=== PATIENT | female | born 1955 | race Caucasian/White ===

== ENCOUNTER 2016-10-18 09:24 | Inpatient (IN) | payer BC ==
[2016-10-18] MEDS ORDERED: HYDROmorphone 0.5 MG/0.5 ML Syringe IVPUSH ONE ×2 (09:42→10:46)
[2016-10-18] MEDS ORDERED: Ondansetron 4 MG/2 ML SDV IVPUSH ONE (09:42)
[2016-10-18] MEDS ORDERED: Sodium Chloride 0.9% 1,000 ML IV SCH ×2 (09:45→11:15)
--- NOTE | 2016-10-18 10:14 | EDM.PDOC ---
ED HPI GI/ABDOMINAL - General Chief Complaint: Abdominal Pain Stated Complaint: STOMACH PAIN Time Seen by Provider: 10/18/16 10:11 Source: Reports: Patient, Family History Limitations: Reports: No limitations - History of Present Illness INITIAL COMMENTS - FREE TEXT/NARRATIVE: pt had severe pain in the rt lower abdoman. which started last nite and has gotten much worse. Timing/Duration: Reports: Hour(s):, Getting worse Location: RLQ Quality: Reports: fullness, stabbing, throbbing Associated Symptoms (-Female): Reports: diarrhea, other ( when the pain started she also had diahrea. ) - Related Data Allergies/ADRs: Allergies Allergy/AdvReac Type Severity Reaction Status Date / Time No Known Allergies Allergy Verified 10/18/16 09:35 Home Meds: Home Meds NK [No Known Home Meds] 10/19/13 [History] ED ROS GENERAL - Review of Systems Review Of Systems: See Below HEENT: Reports: No symptoms Respiratory: Reports: No Symptoms Cardiovascular: Reports: No symptoms Endocrine: Reports: no symptoms GI/Abdominal: Reports: Abdominal pain, Diarrhea, Other ( severe rt sided abdomanal pain) : Reports: no symptoms Musculoskeletal: Reports: no symptoms Skin: Reports: no symptoms ED EXAM, GI/ABD - Physical Exam Exam: See Below Text/Narrative:: pt arrived very uncomfortable in the rt lower abdoman. She states her pain started last nite and has gotten progressively worse. She has been nauseated. No urin symptoms. Exam Limited By: No limitations General Appearance: alert, anxious, mild distress Ears: normal TMs Nose: normal inspection Throat/Mouth: Normal inspection, Other ( mouth is dry. ) Head: atraumatic Neck: normal inspection Respiratory/Chest: no respiratory distress Cardiovascular: regular rate, rhythm GI/Abdominal: tenderness, guarding, other (Pt is very uncomfortable in the rt lower abdoman. ) (Female) Exam: Deferred Rectal (Female) Exam: Deferred Extremities: normal inspection Neurological: alert, oriented, normal cognition Psychiatric: normal affect Course - Vital Signs Last Recorded V/S: Last Vital Signs Temp 38.1 C 10/18/16 09:40 Pulse 100 10/18/16 09:40 Resp 20 10/18/16 09:40 BP 182/102 H 10/18/16 09:40 Pulse Ox 94 L 10/18/16 09:40 - Orders/Labs/Meds Orders: Active Orders 24 hr Category Date Time Status UA W/MICROSCOPIC [URIN] Urgent Lab 10/18/16 09:40 Uncollected Iopamidol [Isovue-300 (61%)] Med 10/18/16 10:22 Active 100 ml IV . DIRECTED PRN Sodium Chloride 0.9% [Normal Saline] 1,000 ml Med 10/18/16 09:45 Active IV ASDIRECTED Sodium Chloride 0.9% [Normal Saline] 75 ml Med 10/18/16 10:30 Active IV ASDIRECTED Medication Orders Sodium Chloride (Normal Saline) 1,000 mls @ 999 mls/hr IV ASDIRECTED LISA Stop: 10/18/16 23:00 Last Admin: 10/18/16 10:11 Dose: 999 mls/hr Sodium Chloride (Normal Saline) 75 mls @ 3 mls/sec IV ASDIRECTED LISA Stop: 10/18/16 23:00 Last Admin: 10/18/16 10:39 Dose: 3 mls/sec Iopamidol (Isovue-300 (61%)) 100 ml IV . DIRECTED PRN PRN Reason: RADIOLOGY EXAM Stop: 10/19/16 10:23 Last Admin: 10/18/16 10:39 Dose: 100 ml Labs: Laboratory Tests 10/18/16 10/18/16 10/18/16 Range/Units 09:49 09:49 09:49 WBC 18.6 H (4.5-11.0) K/uL RBC 4.62 (3.30-5.50) M/uL Hgb 13.6 (12.0-15.0) g/dL Hct 40.7 (36.0-48.0) % MCV 88 (80-98) fL MCH 29 (27-31) pg MCHC 33 (32-36) % Plt Count 400 (150-400) K/uL Neut % (Auto) 89 H (36-66) % Lymph % (Auto) 7 L (24-44) % [place] % (Auto) 4 (2-6) % Eos % (Auto) 0 L (2-4) % Baso % (Auto) 0 (0-1) % Sodium 134 L (140-148) mmol/L Potassium 3.8 (3.6-5.2) mmol/L Chloride 99 L (100-108) mmol/L Carbon Dioxide 22 (21-32) mmol/L Anion Gap 16.8 H (5.0-14.0) mmol/L BUN 12 (7-18) mg/dL Creatinine 1.0 (0.6-1.0) mg/dL Est Cr Clr Drug Dosing TNP Estimated GFR (MDRD) 57 L (>60) Glucose 152 H (74-106) mg/dL Calcium 8.7 (8.5-10.1) mg/dL Total Bilirubin 0.9 (0.2-1.0) mg/dL AST 29 (15-37) U/L ALT 38 (12-78) U/L Alkaline Phosphatase 145 H (46-116) U/L C-Reactive Protein 5.67 H (0.0-0.3) mg/dL Total Protein 8.2 (6.4-8.2) g/dL Albumin 4.1 (3.4-5.0) g/dL Globulin 4.1 H (2.3-3.5) g/dL Albumin/Globulin Ratio 1.0 L (1.2-2.2) Meds: Medications Generic Name Dose Route Start Last Admin Trade Name Freq PRN Reason Stop Dose Admin Sodium Chloride 1,000 mls @ 999 mls/hr 10/18/16 09:45 10/18/16 10:11 Normal Saline IV 10/18/16 23:00 999 mls/hr ASDIRECTED LISA Administration Sodium Chloride 75 mls @ 3 mls/sec 10/18/16 10:30 10/18/16 10:39 Normal Saline IV 10/18/16 23:00 3 mls/sec ASDIRECTED LISA Administration Iopamidol 100 ml 10/18/16 10:22 10/18/16 10:39 Isovue-300 (61%) IV 10/19/16 10:23 100 ml . DIRECTED PRN Administration RADIOLOGY EXAM Discontinued Medications Generic Name Dose Route Start Last Admin Trade Name Freq PRN Reason Stop Dose Admin Hydromorphone HCl 0.5 mg 10/18/16 09:42 10/18/16 09:52 Dilaudid IVPUSH 10/18/16 09:43 0.5 mg ONETIME ONE Administration Hydromorphone HCl 0.5 mg 10/18/16 10:46 10/18/16 10:51 Dilaudid IVPUSH 10/18/16 10:47 0.5 mg ONETIME ONE Administration Ondansetron HCl 4 mg 10/18/16 09:42 10/18/16 09:55 Zofran IVPUSH 10/18/16 09:43 4 mg ONETIME ONE Administration - Re-Assessments/Exams Free Text/Narrative Re-Assessment/Exam: 10/18/16 10:31 Pt arrived with pain in the rt lower abdoman. Her wbc is 18,600. Her crp is elevated. Her flat plate of the abdoman does not show evidebnce of a bowel obstructon 10/18/16 11:07 Pt had a cat scan of the abdoman which showed a perforated appendix. No abcess formation Departure - Departure Time of Disposition: 11:08 Disposition: Admitted As Inpatient 67 Condition: fair Clinical Impression: Perforated appendix Forms: ED Department Discharge Care Plan Goals: admit to Dr Escobar - My Orders Last 24 Hours: My Active Orders 10/18/16 09:40 UA W/MICROSCOPIC [URIN] Urgent 10/18/16 09:45 Sodium Chloride 0.9% [Normal Saline] 1,000 ml IV ASDIRECTED 10/18/16 10:22 Iopamidol [Isovue-300 (61%)] 100 ml IV . DIRECTED PRN 10/18/16 10:30 Sodium Chloride 0.9% [Normal Saline] 75 ml IV ASDIRECTED - Assessment/Plan Last 24 Hours: My Active Orders 10/18/16 09:40 UA W/MICROSCOPIC [URIN] Urgent 10/18/16 09:45 Sodium Chloride 0.9% [Normal Saline] 1,000 ml IV ASDIRECTED 10/18/16 10:22 Iopamidol [Isovue-300 (61%)] 100 ml IV . DIRECTED PRN 10/18/16 10:30 Sodium Chloride 0.9% [Normal Saline] 75 ml IV ASDIRECTED
[2016-10-18] MEDS ORDERED: Iopamidol 612 MG/ML 100 ML Bottle IV PRN (10:22)
[2016-10-18] MEDS ORDERED: Sodium Chloride 0.9% 75 ML IV SCH (10:30)
--- NOTE | 2016-10-18 10:38 | CR ---
Abdomen Series w Chest 1V HISTORY: Pain. COMPARISON: None FINDINGS: Cardiac size and pulmonary vessels normal. Lungs are clear. Abdominal films demonstrate no obstruction no free air no suspicious calcifications. Impression: Negative abdomen and chest.
--- NOTE | 2016-10-18 11:00 | CT ---
Abdomen Pelvis w Cont HISTORY: Abdominal pain. Dose: Total DLP 604. COMPARISON: Earlier plain films. FINDINGS: The appendix is dilated with extensive inflammation around the appendix. Appendix measures up to 14 mm with appendicoliths present. There is free air just outside the margin of the appendix image 99 as well as some tiny bubbles of free air anterior to the liver measuring less than 1 cm. No abscess is seen. The liver, spleen, pancreas, adrenal glands and abdominal aorta appear normal. Kidneys unremarkable. No bowel obstruction. The pelvis appears unremarkable. Impression: 1. Appendicitis with perforation. No abscess seen. These findings were called to the emergency room physician at 10:50 AM hours
[2016-10-18] MEDS ORDERED: Bupivacaine 0.5%/EPINEPHrine 1:200,000 50 ML MDV ONE (11:41)
[2016-10-18] MEDS ORDERED: Piperacillin/Tazobactam/Dext 4.5 GM in Premix Bag 1 BAG IV ONE (11:45)
[2016-10-18] MEDS ORDERED: Ondansetron 4 MG/2 ML SDV IVPUSH PRN (11:58)
[2016-10-18] MEDS ORDERED: Promethazine 25 MG/ML SDV IM PRN (11:59)
[2016-10-18] MEDS ORDERED: diphenhydrAMINE 50 MG/ML SDV IV PRN (11:59)
[2016-10-18] MEDS ORDERED: diphenhydrAMINE 25 MG Cap PO PRN (12:00)
[2016-10-18] MEDS ORDERED: Morphine 4 MG/ML Syringe IVPUSH PRN (12:00)
[2016-10-18] MEDS ORDERED: Scopolamine 1.5 MG Transdermal Patch TOP SCH (12:00)
[2016-10-18] MEDS ORDERED: Succinylcholine/Normal Saline 200 MG/10 ML Syringe ONE (12:01)
[2016-10-18] MEDS ORDERED: fentaNYL 100 MCG/2 ML SDV IVPUSH PRN (12:01)
[2016-10-18] MEDS ORDERED: Neostigmine Methylsulfate 1 MG/ML 5 ML Syringe ONE (12:01)
[2016-10-18] MEDS ORDERED: Propofol 200 MG/20 ML SDV ONE (12:01)
[2016-10-18] MEDS ORDERED: Rocuronium 50 MG/5 ML Vial ONE (12:01)
[2016-10-18] MEDS ORDERED: fentaNYL 250 MCG/5 ML SDV ONE ×2 (12:01→12:33)
[2016-10-18] MEDS ORDERED: Ondansetron 4 MG/2 ML SDV ONE (12:01)
[2016-10-18] MEDS ORDERED: Dexamethasone 4 MG/ML SDV ONE (12:01)
[2016-10-18] MEDS ORDERED: Scopolamine 1.5 MG Transdermal Patch TOP PRN (12:02)
[2016-10-18] MEDS ORDERED: Nicotine 14 MG/24 Hr Patch TRDERM PRN (12:03)
[2016-10-18] MEDS ORDERED: Lactated Ringers 1,000 ML ONE (12:50)
[2016-10-18] MEDS ORDERED: HYDROmorphone 1 MG/ML Syringe IVPUSH ONE (13:45)
[2016-10-18] MEDS ORDERED: Zolpidem 5 MG Tab PO PRN (14:52)
[2016-10-18] MEDS ORDERED: Docusate Sodium 100 MG Cap PO PRN (14:52)
[2016-10-18] MEDS ORDERED: Benzocaine/Cetylpyridinium/Menthol Lozenge MUCMEM PRN (14:52)
[2016-10-18] MEDS ORDERED: Bisacodyl 5 MG Tab PO PRN (14:52)
[2016-10-18] MEDS: VERIFY SCOP PATCH TOP SCH (17:03)
[2016-10-18] MEDS: Acetaminophen 325 MG Tab PO PRN (17:26)
[2016-10-18] MEDS: Sodium Chloride 0.9% 1,000 ML IV SCH (17:28)
[2016-10-18] MEDS: Piperacillin/Tazobactam/Dext 4.5 GM in Premix Bag 1 BAG IV SCH (19:09)
[2016-10-18] MEDS: Acetaminophen/oxyCODONE 325-10 MG Tab PO PRN (22:11)
--- NOTE | 2016-10-18 23:40 | CONS ---
DATE OF SERVICE: 10/18/2016 REFERRING PHYSICIAN: CONSULTING PHYSICIAN: Ramírez Escobar MD REASON FOR CONSULTATION: Evaluation of abdominal pain. HISTORY OF PRESENT ILLNESS: This is a pleasant 61-year-old female with right lower quadrant abdominal pain. This has been present for approximately 24 hours. There is no nausea or vomiting associated with this. PAST MEDICAL HISTORY: None. PAST SURGICAL HISTORY: No previous abdominal surgery. FAMILY HISTORY: Noncontributory. REVIEW OF SYSTEMS: GENERAL: Please see above. HEENT: No symptoms. RESPIRATORY: No shortness of breath. CARDIOVASCULAR: No chest pain. ENDOCRINE: No heat or cold intolerance. GASTROINTESTINAL: As above. GENITOURINARY: No dysuria. MUSCULOSKELETAL: No symptoms. SKIN: No symptoms. Remainder review of systems is reviewed and is negative. PHYSICAL EXAMINATION: VITAL SIGNS: Temperature 100.7, blood pressure 130/73, pulse 105, respirations 18, 91% on room air. GENERAL: The patient is appropriate for her condition. HEENT: Pupils are equal. NECK: Supple. LUNGS: Clear. CARDIOVASCULAR: Regular rhythm and rate. ABDOMEN: Pain with palpation right lower quadrant. Minimal guarding, no rebound. EXTREMITIES: Full range of motion. NEUROLOGICAL: Alert and oriented x3. PSYCH: No gross depression. LABORATORY RESULTS: Show white blood cell count of 18.6. Creatinine 1.0. IMAGING: I did review the CT scan which shows appendicitis. ASSESSMENT: Appendicitis. PLAN: The patient will be taken to the operating room for laparoscopic appendectomy. We discussed risks, benefits, alternatives, and limitations, including, but not limited to infection, bleeding, and perforation along with injury to abdominal structures such as bowel, bladder, abscess formation, ileus formation, and other risks not listed here. The patient understands these risks and wished to proceed. Ramírez Escobar MD /[id number]
[2016-10-19] MEDS: Piperacillin/Tazobactam/Dext 4.5 GM in Premix Bag 1 BAG IV SCH ×3 (04:44→19:57)
[2016-10-19] MEDS: Acetaminophen 325 MG Tab PO PRN ×3 (04:47→14:17)
--- NOTE | 2016-10-19 07:55 | OR ---
DATE OF PROCEDURE: 10/18/2016 PROCEDURE: Laparoscopic appendectomy. FINDINGS: 1. Ruptured appendicitis with piecemeal appendix (obliterated appendix). 2. No other abnormalities. COMPLICATIONS: None. PULP SCREEN OPERATOR: None. PREOPERATIVE DIAGNOSIS: Appendicitis. POSTOPERATIVE DIAGNOSIS: Appendicitis. INDICATIONS: Risks benefits, alternatives, and limitations including, but not limited to infection, bleeding, and injury to abdominal structures such as bowel or ladder were explained to the patient and she wished to proceed. PROCEDURE IN DETAIL: The patient was placed in supine position. A supraumbilical curvilinear incision was made. A Veress needle was used to enter the abdomen without abnormality. A drop test was performed without abnormality. The Optiview was used to enter the abdomen. Two 5 mm ports were entered under direct visualization. The entry sites were inspected and there was no abnormality. The appendix could be identified in the right lower quadrant. This was completely obliterating and noted to be in piecemeal fashion. This was subsequently resected in piecemeal fashion with the base of this resected with a 10 load stapler. Its associated appendiceal sail was also sent along with specimen. The area was then cultured. The abdomen was then thoroughly irrigated with 1 L of irrigation and was inspected for hemostasis, which was noted. The patient's abdomen was turned in multiple incantations to maximize suction irrigation of free fluid. A 10 flat Serge-Morrissey drain would then be placed in the right lower quadrant in the appendiceal stump area. The air was removed. The wounds were thoroughly irrigated and closed with 3-0 Vicryl and 4-0 Vicryl in an interrupted fashion. The patient tolerated the procedure well. Ramírez Escobar MD /[id number]
[2016-10-19] MEDS: VERIFY SCOP PATCH TOP SCH (08:30)
[2016-10-19] MEDS: Enoxaparin 40 MG/0.4 ML Syringe SUBCUT SCH (08:30)
[2016-10-19] MEDS: Sodium Chloride 0.9% 1,000 ML IV SCH (10:36)
[2016-10-19] MEDS: Ibuprofen 600 MG Tab PO PRN ×2 (10:36→18:02)
--- NOTE | 2016-10-19 11:15 | PN ---
DATE OF SERVICE: 10/19/2016 SUBJECTIVE: The patient is doing better today. Pain is well controlled. No nausea, vomiting, shortness of breath, or chest pain. OBJECTIVE: VITAL SIGNS: Stable. She is afebrile at 98.4, blood pressure 107/63, pulse 71, respirations 18, and 90% on room air. CARDIOVASCULAR: Regular rhythm and rate. RESPIRATORY: Lungs are clear to consultation bilaterally. ABDOMEN: Bowel sounds are positive. LABORATORY RESULTS: Show a white blood cell count of 18,000. Creatinine is normal. ASSESSMENT: Status post laparoscopic appendectomy. PLAN: 1. Diet. Continue to advance diet. Smaller, more frequent meals are recommended. 2. Pain management. The patient will be converted to ibuprofen and Tylenol and less Percocet and morphine. 3. Activity. Activity certainly encouraged. 4. Fluid electrolyte nutrition. The patient will begin with saline lock IV. 5. Antibiotics. Continue antibiotics. Plan will be antibiotics for approximately three days. Recheck the white count. Ramírez Escobar MD /[id number]
[2016-10-19] MEDS: Acetaminophen/oxyCODONE 325-10 MG Tab PO PRN (20:12)
[2016-10-20] MEDS: Acetaminophen 325 MG Tab PO PRN ×3 (02:45→18:39)
[2016-10-20] MEDS: Piperacillin/Tazobactam/Dext 4.5 GM in Premix Bag 1 BAG IV SCH ×3 (03:16→20:42)
[2016-10-20] MEDS: Ibuprofen 600 MG Tab PO PRN ×2 (06:57→16:34)
[2016-10-20] MEDS: VERIFY SCOP PATCH TOP SCH (08:37)
[2016-10-20] MEDS: Enoxaparin 40 MG/0.4 ML Syringe SUBCUT SCH (08:48)
--- NOTE | 2016-10-20 10:38 | PN ---
DATE OF SERVICE: 10/20/2016 SUBJECTIVE: The patient is doing better today. Pain is well controlled. No nausea, vomiting, shortness of breath, or chest pain. She has not had a bowel movement yet. OBJECTIVE: VITAL SIGNS: Stable. Temperature 98.8, blood pressure 142/72, pulse 76, respirations 18, and 91% on room air. CARDIOVASCULAR: Regular rhythm and rate. RESPIRATORY: Lungs are clear to consultation bilaterally. ABDOMEN: Bowel sounds are positive. ASSESSMENT: Ruptured appendicitis. PLAN: Continue antibiotics at this time. There was concern she may be developing into an ileus over the next several days. We have recommended smaller, more frequent meals, and we will work on bowel stimulation. Ramírez Escobar MD /[id number]
[2016-10-20] MEDS: Acetaminophen/oxyCODONE 325-10 MG Tab PO PRN (21:31)
[2016-10-21] MEDS: Piperacillin/Tazobactam/Dext 4.5 GM in Premix Bag 1 BAG IV SCH ×3 (03:31→19:46)
[2016-10-21] MEDS: Ondansetron 4 MG/2 ML SDV IVPUSH PRN (03:31)
[2016-10-21] MEDS ORDERED: Promethazine 12.5 MG in Sodium Chloride 0.9% 50 ML IV PRN (05:01)
[2016-10-21] MEDS: Sodium Chloride 0.9% 1,000 ML IV SCH ×2 (06:18→22:01)
[2016-10-21] MEDS ORDERED: Scopolamine 1.5 MG Transdermal Patch TRDERM PRN (07:30)
[2016-10-21] MEDS: Enoxaparin 40 MG/0.4 ML Syringe SUBCUT SCH (09:29)
[2016-10-21] MEDS: VERIFY SCOP PATCH TOP SCH (09:38)
--- NOTE | 2016-10-21 12:03 | PN ---
DATE OF SERVICE: 10/21/2016 SUBJECTIVE: The patient is doing well today except has developed nausea and vomiting consistent with ileus. She is still having bowel movements. She feels subjectively better after her first nausea or vomiting event. OBJECTIVE: VITAL SIGNS: Stable. CARDIOVASCULAR: Regular rhythm and rate. RESPIRATORY: Lungs are clear to auscultation bilaterally. ABDOMEN: Bowel sounds are positive. Incisions are healing well. Drain output is now serosanguineous. LABORATORY DATA: Results are pending. ASSESSMENT AND PLAN: 1. Postoperative appendicitis. We will continue antibiotics. 2. Postoperative ileus. Electrolytes are pending. KUB shows imaging consistent with postoperative ileus. Ramírez Escobar MD /[id number]
--- NOTE | 2016-10-21 12:09 | PN ---
DATE OF SERVICE: 10/21/2016 SUBJECTIVE: The patient continues to improve. This is both subjectively and objectively. She has not had a bowel movement yet, but she is passing gas and feels she is going to have one soon. OBJECTIVE: VITAL SIGNS: Stable, slightly hypertensive. CARDIOVASCULAR: Regular rhythm and rate. RESPIRATORY: Lungs are clear to consultation bilaterally. ABDOMEN: Bowel sounds positive. LABORATORY DATA: Hemoglobin shows good stability. ASSESSMENT: Trauma. PLAN: 1. We will consult Internal Medicine for evaluation of her hypertension especially her diastolic hypertension. This is most likely un untreated hypertension, which has just been unmasked due to recent hospitalization. 2. Left quadrant upper quadrant pain. We are still to perform a chest x-ray to rule out any evidence of pneumothorax as this is more chest with inspiration than abdominal etiology. 3. Hematology. Liver laceration appears to be stable as hemoglobin is stable. 4. General disposition. The patient will be discharged if she remains hemodynamically stable over the next 24 hours, which we will recheck her hemoglobin in the a.m. 5. Psychiatric. The patient has significant psychiatric issues. We will see if Psychology/Psychiatry can see in a.m. Ramírez Escobar MD /[id number]
[2016-10-21] MEDS: Acetaminophen 325 MG Tab PO PRN (15:03)
[2016-10-21] MEDS: Ibuprofen 600 MG Tab PO PRN (19:46)
[2016-10-22] MEDS: Acetaminophen 325 MG Tab PO PRN ×3 (03:11→18:52)
[2016-10-22] MEDS: Piperacillin/Tazobactam/Dext 4.5 GM in Premix Bag 1 BAG IV SCH (03:12)
[2016-10-22] MEDS: Sodium Chloride 0.9% 1,000 ML IV SCH ×2 (07:10→16:21)
[2016-10-22] MEDS: Ibuprofen 600 MG Tab PO PRN ×3 (07:14→22:28)
[2016-10-22] MEDS: Enoxaparin 40 MG/0.4 ML Syringe SUBCUT SCH (09:13)
[2016-10-22] MEDS: Ondansetron 4 MG/2 ML SDV IVPUSH PRN (09:17)
--- NOTE | 2016-10-22 11:12 | PN ---
DATE OF SERVICE: 10/22/2016 SUBJECTIVE: The patient continues to improve. She is having bowel movements. Nausea has almost abated. She is tolerating diet. OBJECTIVE: VITAL SIGNS: Stable. T-max 99.1. CARDIOVASCULAR: Regular rhythm and rate. RESPIRATORY: Lungs are clear to consultation bilaterally. ABDOMEN: Bowel sounds are positive. Incision is healing well. LABORATORY DATA: White blood cell count is within acceptable range. ASSESSMENT: Status post laparoscopic appendectomy. PLAN: The patient does continue to have a low-grade fever. We will continue 24 hours of antibiotics and reassess aside from not if the patient continues to do well. Continue regular diet. Increase activity. Ramírez Escobar MD /[id number]
--- NOTE | 2016-10-22 11:30 | CR ---
2 view abdomen There is a surgical drain in the right lower quadrant. There is mild distention of large and small b owel with air-fluid levels. No free air seen. Impression: 1. Findings most consistent with a postoperative ileus.
[2016-10-22] MEDS: VERIFY SCOP PATCH TOP SCH (12:18)
[2016-10-22] MEDS: Piperacillin/Tazobactam 4.5 GM in Sodium Chloride 0.9% 100 ML IV SCH ×2 (12:18→20:22)
[2016-10-23] MEDS: Acetaminophen 325 MG Tab PO PRN (03:00)
[2016-10-23] MEDS: Piperacillin/Tazobactam 4.5 GM in Sodium Chloride 0.9% 100 ML IV SCH ×3 (04:00→11:21)
[2016-10-23 08:06] VITALS: BP 159/94
[2016-10-23] MEDS: Ibuprofen 600 MG Tab PO PRN (08:09)
[2016-10-23] MEDS: Enoxaparin 40 MG/0.4 ML Syringe SUBCUT SCH (08:09)
[2016-10-23] MEDS ORDERED: Acetaminophen/oxyCODONE 325-5 MG Tab PO PRN (10:16)
[2016-10-23] MEDS: Ondansetron 4 MG/2 ML SDV IVPUSH PRN (10:23)
--- NOTE | 2016-11-01 12:33 | DISCH ---
DISCHARGE DIAGNOSIS: Status post laparoscopic appendectomy for essentially obliterated appendix. ADDITIONAL DIAGNOSIS: None. HOSPITAL COURSE: This is a pleasant 61-year-old female, who was brought to the emergency room with right lower quadrant abdominal pain, with a long duration. The patient underwent a CT scan and was felt to have appendicitis. The patient was taken to the operating room for laparoscopic appendectomy. During this procedure was noted, the patient essentially had obliterated appendix with multiple pieces. These were reflected in an obvious piecemeal fashion, collected in a bag. The patient underwent a thorough irrigation and subsequent Serge-Morrissey drainage. Over the next 72 hours, the patient developed a mild ileus. She has responded well to this. Prior to the discharge, her pain is well controlled. She had no nausea, vomiting, shortness of breath, or chest pain. The drain output was serosanguineous. She was afebrile and her white blood cell count is normal. Of note, white blood cell count and fever were normal for greater than 48 hours. FOLLOWUP: Follow up with Surgery in 7 to 14 days. DISCHARGE MEDICATIONS: Please see MAR.
== END 2016-10-23 13:10 | disposition home or self-care (01) | DRG 225 ==
LOC: JP.ED 09:24 → JP.SDS 11:57 → JP.2SS 11:58 → UNDOADMIN 14:10
PROVIDERS: ADMIT Surgery; ATTEND Surgery
PROC: 0DTJ4ZZ Resection of Appendix, Percutaneous Endoscopic Approach (ICD-10-PCS; principal; 2016-10-18)
DX: K35.2 Acute appendicitis with generalized peritonitis (principal); K91.3 Postprocedural intestinal obstruction
CPT/HCPCS: 36415; 74020; 74020-26; 74022; 74022-26; 74177; 74177-26; 80048; 80053; 83735; 84100; 85025; 85027; 86140; 87070; 87075; 87077; 87186; 87205; 88304; 93005; 96374; 96375; 96376; 99285-25; A9270-GY; J1100; J1170; J1650; J2405; J2543; J2550; J2704; J3010; J7030; J7040; J7050; J7120; Q9967